=== PATIENT | female | born 1985 | race Caucasian/White ===

== ENCOUNTER 2021-04-24 18:01 | Emergency (ER) | payer OTHER ==
[2021-04-24 18:48] VITALS: BP 144/91; PULSE 85; RESP 16; TEMP 98.5
--- NOTE | 2021-04-24 19:26 | ED ---
Recheck HPI - General Chief Complaint: Recheck/Abnormal Lab/Rx Stated Complaint: Covid Test Time Seen by Provider: 04/24/21 18:49 Source: patient, RN notes reviewed Mode of arrival: ambulatory Limitations: no limitations - History of Present Illness Initial Comments: Patient is a 35-year-old female that presents to the emergency department needing a Covid test returned [place]. She is asymptomatic and afebrile. Patient was well-appearing. She denied any other issues or complaints. Patient denied chest pain first breath headache nausea vomiting diarrhea constipation fever fatigue chills. - Related Data Allergies Allergy/AdvReac Type Severity Reaction Status Date / Time clarithromycin [From Biaxin] Allergy Unknown Verified 04/24/21 18:48 Penicillins Allergy Unknown Verified 04/24/21 18:48 Review of Systems ROS Statement: Those systems with pertinent positive or pertinent negative responses have been documented in the HPI. ROS Other: All systems not noted in ROS Statement are negative. Past Medical History Past Medical History: No Reported History History of Any Multi-Drug Resistant Organisms: None Reported Past Surgical History: No Surgical Hx Reported Past Psychological History: No Psychological Hx Reported Smoking Status: Never smoker Past Alcohol Use History: None Reported Past Drug Use History: None Reported General Exam Limitations: no limitations General appearance: alert, in no apparent distress Head exam: Present: atraumatic, normocephalic, normal inspection Eye exam: Present: normal appearance, PERRL, EOMI. Absent: scleral icterus, conjunctival injection, periorbital swelling ENT exam: Present: normal exam, mucous membranes moist Neck exam: Present: normal inspection Respiratory exam: Present: normal lung sounds bilaterally. Absent: respiratory distress, wheezes, rales, rhonchi, stridor Cardiovascular Exam: Present: regular rate, normal rhythm, normal heart sounds. Absent: systolic murmur, diastolic murmur, rubs, gallop, clicks Extremities exam: Present: normal inspection, full ROM, normal capillary refill. Absent: tenderness, pedal edema, joint swelling, calf tenderness Neurological exam: Present: alert, oriented X3 Psychiatric exam: Present: normal affect, normal mood Course Vital Signs 04/24/21 18:45 Temperature 98.5 F Pulse Rate 85 Respiratory 16 Rate Blood Pressure 144/91 O2 Sat by Pulse 98 Oximetry Medical Decision Making - Medical Decision Making 35-year-old female Covid test to return to [place]. Covid test ordered and is negative. Patient is able to discharge. Case discussed with Dr. Fried. - Lab Data Lab Results 04/24/21 Range/Units 18:49 Coronavirus (PCR) Not Detected (Not Detectd) Disposition Clinical Impression: Encounter for screening for COVID-19 Disposition: HOME SELF-CARE Condition: Stable Additional Instructions: Please return to the Emergency Department if symptoms worsen or any other concerns. Is patient prescribed a controlled substance at d/c from ED?: No Referrals: Nonstaff,Physician [Primary Care Provider] - 1-2 days Time of Disposition: 19:26
== END 2021-04-24 19:49 | disposition home or self-care (01) ==
LOC: EC 18:01
DX: Z11.52 Encounter for screening for COVID-19 (principal); Z20.822 Contact with and (suspected) exposure to COVID-19
CPT/HCPCS: 87635; 99282